=== PATIENT | female | born 1985 | race Caucasian/White ===

== ENCOUNTER 2023-12-18 16:36 | Emergency (ER) | payer OTHER ==
[~2023-12-18] VITALS: Ht 154.9 cm; Wt 85.7 kg
[2023-12-18 16:44] VITALS: BP 151/90; PULSE 87; RESP 16; TEMP 97.7; O2SAT 98
[2023-12-18] MEDS ORDERED: IBUP-1842 PO (18:11)
[2023-12-18] MEDS ORDERED: OFLO5SOL27 RIGHT EAR (18:11)
[2023-12-18 18:17] VITALS: BP 145/89; PULSE 85; RESP 16; TEMP 36.50292; O2SAT 98
== END 2023-12-18 18:17 | disposition home or self-care (01) ==
LOC: MED 16:36
DX: T16.1XXA Foreign body in right ear, initial encounter (principal); H72.91 Unspecified perforation of tympanic membrane, right ear; Z79.899 Other long term (current) drug therapy; W44.8XXA Other foreign body entering into or through a natural orifice, initial encounter; Y93.89 Activity, other specified; Y92.89 Other specified places as the place of occurrence of the external cause; Y99.8 Other external cause status
CPT/HCPCS: 69200; 99284